=== PATIENT | female | born 1940 | race Caucasian/White ===

== ENCOUNTER 2023-09-21 12:34 | Emergency (ER) | payer MEDICARE, SELFPAY ==
[2023-09-21 12:46] VITALS: BP 155/88
--- NOTE | 2023-09-21 14:15 | ED.GENMED ---
History of Present Illness
General
Chief Complaint: Musculo-Skeletal Complaint
Source: patient, spouse and family
Time Seen by Provider: 09/21/23 13:26
Travel History
Have you had any contact with someone who has COVID-19?: No
Do you have any symptoms of coronavirus? Fever > 100 degrees, chills, cough, shortness of breath, sore throat, loss of taste or smell, muscle aches, or headache?: No
History of Present Illness
History of Present Illness:
82-year-old female presenting to the emergency department from a local urgent care for evaluation after she had an accidental trip and fall yesterday evening resulting in significant left wrist pain. At the urgent care patient had an x-ray done and
was told she had 2 broken bones in her forearm and that she should come to the emergency department for urgent orthopedics consultation and likely surgery. Patient was placed in a splint prior to being discharged from the urgent care and presented
to the ER. Patient denies any head injury, loss consciousness, vomiting, visual changes or any other injuries sustained. She still notes she is having pain to the affected left wrist/forearm but is denying any weakness, numbness or paresthesia to
the extremity.
Past History
Past History
ED Past Medical History: None
ED Past Surgical History: Cholecystectomy
Social History
Tobacco: Non-smoker
Alcohol: None
Drug: None
Personal:
Living: with family
Review of Systems
Review of Systems
All Other Systems: ROS reviewed and negative except as documented in HPI and ROS
Phy Exam
Physical Exam
Physical Exam:
GENERAL: Alert , in no apparent distress
EYE: conjunctiva clear
Head: Normocephalic atraumatic
NECK: Supple,
ENT: mmm.
LUNGS: no acute respiratory distress
NEUROLOGICAL: Alert and oriented
SKIN: Warm and dry, skin intact.
MUSCULOSKELETAL: Left wrist has a small volar wrist splint in place. Cap refill to the extremities is less than 2 seconds and patient is able to range of motion her digits without much pain or difficulty. Sensation is grossly intact to light
touch. Remainder of extremities are within normal limits and without signs of trauma.
PSYCH: Normal and appropriate interaction.
Scores
Heart Failure Risk
Heart Failure Risk Score: Not Applicable
Heart Score for Chest Pain Patients
STEMI patient?: Not applicable
Withdrawal Assessment of Alcohol
Withdrawal Assessment Completed?: Not applicable
Course
Orders/Labs/Results
Orders:
Orders
09/21/23 13:56
Oxycodone/Acetaminophen [Percocet 5/325] 1 tablet PO NOW STA
09/21/23 13:57
Ibuprofen [Motrin] 400 mg PO NOW STA
Vital Signs
Initial and Last Documented VS:
Initial Vital Signs
Temp Pulse Resp BP Pulse Ox
98.1 F 73 16 155/88 97
09/21/23 12:46 09/21/23 12:46 09/21/23 12:46 09/21/23 12:46 09/21/23 12:46
Last Documented Vital Signs
Temp Pulse Resp BP Pulse Ox
98.1 F 72 18 133/72 97
09/21/23 12:46 09/21/23 14:53 09/21/23 14:53 09/21/23 14:53 09/21/23 14:53
Procedures
Splinting/Sling Placement
Left Lower Arm:
Procedure completed by: Jayla
Pre-splint extermity exam: neurovascular intact
Type of splint: sugar-tong
Splint material: other (3 inch Ortho-Glass)
Splint checked by provider?: Yes
Type of sling: sling fitted
Normal distal neurovascular exam?: Yes
MDM/Problems Addressed
MDM/Problems Addressed:
82-year-old female presenting the emergency department at the request of local urgent care to be evaluated of a significant left wrist fracture. I reviewed the x-rays that were done at their facility which show an impacted distal radius and ulnar
fracture. There is slight dorsal angulation of the ulnar fragment. Overall the bones are well in line but impacted. Patient is likely going to need surgery but not emergently as she is neurovascularly intact and there are no open wounds.
Patient's splint that is in place is not sufficient for her injury so I will replace this with a sugar-tong splint. Pain control with Motrin and Percocet. Patient was provided with information for outpatient orthopedics follow-up. I discussed all
of this with patient and her family and they are happy in agreement with this treatment plan. She is otherwise stable for discharge home.
*Pulse Oximetry
Patient hypoxic: no
*Critical Care Note
Total Time (30-74mins, 75-104mins- exclusive of procedures): Not Applicable
Data Reviewed
Review of Other/Old Records Reveals: Radiology Studies
Source: patient, records and family
ED Attending Note
-
Portions of this chart may have been created with voice recognition software.� Occasional wrong word or��sound alike� substitutions may have occurred due to the inherent limitations of voice recognition software.
Discharge Plan
Departure
Patient Disposition: Home (Routine Discharge)
Date of Disposition: 09/21/23
Time of Disposition: 14:15
Patient with high blood pressure during this ER visit?: Yes
Discharge Problem:
Fracture of left radius and ulna
Instructions: Wrist Fracture (DC)
Prescriptions:
New
oxycodone-acetaminophen [Percocet] 5-325 mg tablet
1 tab PO Q6HPRN PRN (Reason: pain) Qty: 5 0RF
No Action
melatonin 5 MG tablet
10 mg PO HS
acetaminophen [Tylenol Arthritis Pain] 650 MG tablet extended release
1,300 mg PO BID
ascorbic acid (vitamin C) [Vitamin C] 500 MG tablet
500 mg PO DAILY
B-complex with vitamin C 1 CAPLET tablet
1 cap PO DAILY
cholecalciferol (vitamin D3) 1,000 UNITS tablet
1,000 units PO DAILY
multivitamin with folic acid [Tab-A-Han] 1 TABLET tablet
1 tab PO DAILY
Tuna Oil
1 cap PO DAILY
docusate sodium 100 MG capsule
100 mg PO BID
amlodipine 5 MG tablet
5 mg PO DAILY Qty: 30 0RF
Referrals:
Quinton Lopez MD [Family Provider] -
Mike Hall MD [Active] - (Hand/Wrist Surgeon)
Interventions
Interventions:
*Risk Screen - Suicide Last Done: 09/21/23 13:30
*General Assessment Last Done: 09/21/23 13:30
*Neglect/Abuse Screening Last Done: 09/21/23 13:30
ED- Fall Risk Assessment Last Done: 09/21/23 13:30
*ED COVID-19 Vaccine History Last Done: 09/21/23 12:46
ED-Musculoskeletal Assessment Last Done: 09/21/23 13:30
Discharge Date and Time
Print Language: MACEDONIAN
[2023-09-21] MEDS: MOTRIN 400 MG PO (14:27)
[2023-09-21] MEDS: PERCOCET 5/325 1 TABLET PO (14:27)
[2023-09-21 14:53] VITALS: BP 133/72
== END 2023-09-21 15:26 | disposition home or self-care (01) ==
LOC: EMR 12:34
PROVIDERS: EMERGENCY PHYSICIAN Emergency Medicine; FAMILY PHYSICIAN Internal Medicine Geriatric Medicine
DX: S52.202A Unspecified fracture of shaft of left ulna, initial encounter for closed fracture (principal); S52.592D Other fractures of lower end of left radius, subsequent encounter for closed fracture with routine healing; W01.0XXA Fall on same level from slipping, tripping and stumbling without subsequent striking against object, initial encounter; R03.0 Elevated blood-pressure reading, without diagnosis of hypertension; Z79.82 Long term (current) use of aspirin; Z90.49 Acquired absence of other specified parts of digestive tract
CPT/HCPCS: 99283; 29125

== ENCOUNTER → 2023-09-24 06:41 | Day surgery (SDC) | payer MEDICARE, SELFPAY ==
[2023-09-24 16:10] VITALS: BP 165/99
[2023-09-24 16:35] VITALS: BMI 22.7
[2023-09-24 16:36] VITALS: BMI 22.7
[2023-09-24 16:36] LABS: Hemoglobin 12.4 g/dL (12.0-16.0); Mean Corp Hgb Conc. 35.4 g/dL (33.0-37.0); Mean Corpuscular Hgb 29.5 pg (27.0-31.0); Mean Corpuscular Volume 83.3 fL (81.0-99.0); Mean Platelet Volume 9.5 fL (7.4-10.4); Platelet Count 211 10^3/uL (130-400); Red Cell Dist. Width 13.7 % (11.5-14.5); White Blood Cell Count 10.5 10^3/uL (4.8-10.8)
[2023-09-24] MEDS: CELEBREX 200 MG PO (16:37)
[2023-09-24] MEDS: TYLENOL 1000 MG PO (16:37)
[2023-09-24] MEDS: NORMOSOL-R 1000 IV (16:38)
[2023-09-24 19:00] VITALS: BP 166/99
[2023-09-24 19:30] VITALS: BP 179/94
[2023-09-24 19:45] VITALS: BP 166/99; BP 176/89
[2023-09-24 20:00] VITALS: BP 181/95
== END ==
LOC: SDS 06:41
PROVIDERS: ATTENDING PHYSICIAN Orthopaedic Surgery Hand Surgery
DX: S52.502A Unspecified fracture of the lower end of left radius, initial encounter for closed fracture (principal); S52.602A Unspecified fracture of lower end of left ulna, initial encounter for closed fracture; X58.XXXA Exposure to other specified factors, initial encounter
CPT/HCPCS: 25608; 25652; 85027; 93005; C1713

== ENCOUNTER → 2024-01-28 09:50 | Outpatient (REF) | payer MEDICARE, SELFPAY | LOC: HWRAD 09:50 | PROVIDERS: ATTENDING PHYSICIAN Internal Medicine Geriatric Medicine | DX: Z78.0 Asymptomatic menopausal state (principal) | CPT/HCPCS: 77080 ==

== ENCOUNTER 2024-03-20 13:30 | Emergency (ER) | payer MEDICARE, SELFPAY ==
[2024-03-20 13:40] VITALS: BP 135/70; BMI 25.0
--- NOTE | 2024-03-20 13:55 | ED.GENMED ---
History of Present Illness
<Klaus Mendoza PA-C - Last Filed: 03/21/24 08:18>
General
Chief Complaint: Fall
Time Seen by Provider: 03/20/24 13:35
History of Present Illness
History of Present Illness:
83-year-old female with history of parkinsonism presents to the emergency department for evaluation of left hip and thigh pain after a fall. States that she was walking with her walker and attempting to reach for something when she lost her balance
and fell onto the left side. Denies head strike. At this time denies back pain or abdominal pain. Does not take blood thinners
Past History
<Klaus Mendoza PA-C - Last Filed: 03/21/24 08:18>
Past History
ED Past Medical History: None
ED Past Surgical History: Cholecystectomy
Social History
Tobacco: Non-smoker
Alcohol: None
Drug: None
Personal:
Living: with family
Review of Systems
<SHELLY Jeffrey Last Filed: 03/21/24 08:18>
Review of Systems
Allergies reviewed?: Yes
All Other Systems: ROS reviewed and negative except as documented in HPI and ROS
Phy Exam
<SHELLY Jeffrey Last Filed: 03/21/24 08:18>
Physical Exam
Physical Exam:
GEN: Well appearing, NAD, WDWN
HEENT: Oral mucosa moist, no scleral icterus
Cardiac: Regular rate
Lung: No respiratory distress, no tachypnea
Abdomen: Soft, nontender
MSK: No gross deformity or injuries, no shortening or external rotation of the left lower extremity. Focal tenderness to the greater trochanter of the left hip with no palpable crepitus
Skin: Good color, no pallor or jaundice, no rashes
Neuro: AO x3, moves all extremities freely
Psych: Calm, cooperative
Course
<Klaus Mendoza PA-C - Last Filed: 03/21/24 08:18>
Orders/Labs/Results
Orders:
Orders
03/20/24 13:46
CR Hip - LT w/wo Pel 2-3 Vw* Urgent
Comment:
Reason For Exam: fall L hip pain
Include a pelvis x-ray?: Yes
03/20/24 16:10
CT Pelvis W/o Iv Contrast Urgent
Comment:
Reason For Exam: L hip pain after fall
03/20/24 17:19
Acetaminophen [Tylenol] 650 mg PO NOW STA
Vital Signs
Initial and Last Documented VS:
Initial Vital Signs
Temp Pulse Resp BP Pulse Ox
97.4 F 81 18 135/70 96
03/20/24 13:40 03/20/24 13:40 03/20/24 13:40 03/20/24 13:40 03/20/24 13:40
Last Documented Vital Signs
Temp Pulse Resp BP Pulse Ox
97.8 F 78 16 133/85 99
03/20/24 19:45 03/20/24 19:45 03/20/24 19:45 03/20/24 19:45 03/20/24 19:45
<Vu Machuca PA-C - Last Filed: 03/20/24 19:48>
Orders/Labs/Results
Orders:
Orders
03/20/24 13:46
CR Hip - LT w/wo Pel 2-3 Vw* Urgent
Comment:
Reason For Exam: fall L hip pain
Include a pelvis x-ray?: Yes
03/20/24 16:10
CT Pelvis W/o Iv Contrast Urgent
Comment:
Reason For Exam: L hip pain after fall
03/20/24 17:19
Acetaminophen [Tylenol] 650 mg PO NOW STA
Vital Signs
Initial and Last Documented VS:
Initial Vital Signs
Temp Pulse Resp BP Pulse Ox
97.4 F 81 18 135/70 96
03/20/24 13:40 03/20/24 13:40 03/20/24 13:40 03/20/24 13:40 03/20/24 13:40
Last Documented Vital Signs
Temp Pulse Resp BP Pulse Ox
97.8 F 78 16 133/85 99
03/20/24 19:45 03/20/24 19:45 03/20/24 19:45 03/20/24 19:45 03/20/24 19:45
<Vu Machuca PA-C - Last Filed: 03/20/24 19:48>
*Critical Care Note
Total Time (30-74mins, 75-104mins- exclusive of procedures): Not Applicable
<Vu Machuca PA-C - Last Filed: 03/20/24 19:48>
Update Note
Update Note:
Assumed care of patient pending CT of pelvis. She fell and had left hip pain x-rays were negative. Pelvis CT confirms nondisplaced superior pubic rami fracture at the junction of the acetabulum. Discussed the findings with patient and who
is in the room. There live a [facility]. I recommended she stay in the hospital for work with physical therapy and further evaluation however both patient's and patient declined. They wish to go back. Without being said, nursing staff
did evaluate the patient. She is ambulatory with a walker in the room. She will continue with Tylenol or ibuprofen for pain. Return precautions were given recommended orthopedic follow-up
ED Attending Note
<Klaus Mendoza PA-C - Last Filed: 03/21/24 08:18>
-
Portions of this chart may have been created with voice recognition software.� Occasional wrong word or��sound alike� substitutions may have occurred due to the inherent limitations of voice recognition software.
Discharge Plan
Departure
Patient Disposition: Home (Routine Discharge)
Date of Disposition: 03/20/24
Time of Disposition: 19:47
Patient with high blood pressure during this ER visit?: No
Discharge Problem:
Fracture of pubic ramus
Prescriptions:
No Action
ascorbic acid (vitamin C) [Vitamin C] 500 MG tablet
500 mg PO DAILY
B-complex with vitamin C 1 CAPLET tablet
1 cap PO DAILY
cholecalciferol (vitamin D3) 1,000 UNITS tablet
1,000 units PO DAILY
multivitamin with folic acid [Tab-A-Han] 1 TABLET tablet
1 tab PO DAILY
docusate sodium 100 MG capsule
100 mg PO PRN PRN (Reason: constipation)
oxycodone-acetaminophen [Percocet] 5-325 mg tablet
1 tab PO Q6HPRN PRN (Reason: pain) Qty: 5 0RF
ibuprofen 200 mg Capsule
200 mg PO Q6H PRN (Reason: pain)
citalopram 20 mg Tablet
20 mg PO DAILY
zolpidem 5 mg Tablet
5 mg PO HS
aspirin 81 mg Tablet,Delayed Release (Dr/Ec)
81 mg PO DAILY
Referrals:
Quinton Lopez MD [Family Provider] -
Michael Aleman MD [Active] -
Activity Restrictions/Additional Instructions:
You may put your foot down slightly only to take some weight off of your left foot otherwise limit weightbearing on left foot with walker. Please follow-up with orthopedics.
Interventions
Interventions:
*Risk Screen - Suicide Last Done: 03/20/24 18:50
*General Assessment Last Done: 03/20/24 18:50
*Neglect/Abuse Screening Last Done: 03/20/24 18:50
ED- Fall Risk Assessment Last Done: 03/20/24 18:50
*Nursing Disposition Last Done: 03/20/24 19:52
ED-Musculoskeletal Assessment Last Done: 03/20/24 18:50
ED- Neurological Assessment Last Done: 03/20/24 18:50
ED-Skin Assessment Last Done: 03/20/24 18:50
Discharge Date and Time
Discharge Date/Time: 03/20/24 19:56
Print Language: CYMRAES
[2024-03-20 17:00] VITALS: BP 145/80
[2024-03-20] MEDS: TYLENOL 650 MG PO (18:54)
[2024-03-20 19:45] VITALS: BP 133/85
== END 2024-03-20 19:56 ==
LOC: EMR 13:30
PROVIDERS: EMERGENCY PHYSICIAN Student in an Organized Health Care Education/Training Program; FAMILY PHYSICIAN Internal Medicine Geriatric Medicine
DX: S32.512A Fracture of superior rim of left pubis, initial encounter for closed fracture (principal); W18.39XA Other fall on same level, initial encounter; G20.C Parkinsonism, unspecified; Z90.49 Acquired absence of other specified parts of digestive tract
CPT/HCPCS: 99284; 72192; 73502

== ENCOUNTER → 2024-10-13 10:03 | Outpatient (REF) | payer MEDICARE, SELFPAY ==
[2024-10-13 12:58] LABS: Hematocrit 39.3 % (37.0-47.0); Hemoglobin 13.2 g/dL (12.0-16.0); Mean Corp Hgb Conc. 33.6 g/dL (33.0-37.0); Mean Corpuscular Volume 87.3 fL (81.0-99.0); Nucleated Red Blood Cells % 0 %; Platelet Count 234 10^3/uL (130-400); Red Cell Dist. Width 13.7 % (11.5-14.5)
[2024-10-13 13:41] LABS: ALT (SGPT) < 10 U/L (0-35); AST (SGOT) 21 U/L (14-36); Albumin 4.4 g/dl (3.5-5.0); Alkaline Phosphatase 61 U/L (38-126); Blood Urea Nitrogen 9 mg/dl (7-17); Calcium 9.6 mg/dl (8.4-10.2); Carbon Dioxide 26 mmol/L (22-30); Chloride 96 mmol/L (98-107); Glucose 94 mg/dl (70-99); HDL Cholesterol 78 mg/dl; LDL Cholesterol, Calculated 76 mg/dl; Potassium 5.0 mmol/L (3.5-5.1); Sodium 126 mmol/L (135-145); Total Protein 7.3 g/dl (6.3-8.2); Very Low Density Lipoprotein 17 mg/dl (0-30); eGFR > 60.00
[2024-10-13 13:56] LABS: Vitamin D, 25-OH*** 29.1 ng/mL (30-80)
[2024-10-13 13:59] LABS: Urine Character Slightly Cloudy (Clear)
[2024-10-13 14:09] LABS: TSH 2.53 uIU/ml (0.47-4.68)
== END ==
LOC: HWLAB 10:03
PROVIDERS: ATTENDING PHYSICIAN Internal Medicine Geriatric Medicine; REFERRING PHYSICIAN Specialist
DX: Z79.899 Other long term (current) drug therapy (principal); R82.90 Unspecified abnormal findings in urine; R79.89 Other specified abnormal findings of blood chemistry; I10 Essential (primary) hypertension; E87.1 Hypo-osmolality and hyponatremia; Z13.29 Encounter for screening for other suspected endocrine disorder; Z13.220 Encounter for screening for lipoid disorders
CPT/HCPCS: 36415; 80053; 80061; 81003; 81015; 82306; 84439; 84443; 85025

== ENCOUNTER → 2024-11-29 11:21 | Outpatient (REF) | payer MEDICARE, SELFPAY ==
[2024-11-29 16:33] LABS: Blood Urea Nitrogen 14 mg/dl (7-17); Calcium 9.6 mg/dl (8.4-10.2); Carbon Dioxide 28 mmol/L (22-30); Chloride 96 mmol/L (98-107); Glucose 87 mg/dl (70-99); Potassium 5.0 mmol/L (3.5-5.1); Sodium 129 mmol/L (135-145); eGFR > 60.00
== END ==
LOC: HWLAB 11:21
PROVIDERS: ATTENDING PHYSICIAN Internal Medicine Geriatric Medicine
DX: R26.89 Other abnormalities of gait and mobility (principal); R26.9 Unspecified abnormalities of gait and mobility; E87.1 Hypo-osmolality and hyponatremia; G25.0 Essential tremor; M81.0 Age-related osteoporosis without current pathological fracture; E55.9 Vitamin D deficiency, unspecified; Z13.89 Encounter for screening for other disorder
CPT/HCPCS: 36415; 80048; 83930; 84300

== ENCOUNTER → 2024-12-23 13:35 | Outpatient (REF) | payer MEDICARE, SELFPAY ==
[2024-12-23 19:17] LABS: Urine Character Slightly Cloudy (Clear)
[2024-12-23 19:48] LABS: Urine Squamous Cell 16-20 /LPF (Few)
[2024-12-23 19:49] LABS: Urine Red Blood Cell 0-2 /HPF (0-2)
== END ==
LOC: CLAB 13:35
PROVIDERS: ATTENDING PHYSICIAN Nurse Practitioner Adult Health
DX: R39.9 Unspecified symptoms and signs involving the genitourinary system (principal)
CPT/HCPCS: 81003; 81015; 87077; 87086; 87186

== ENCOUNTER 2025-02-03 01:37 | Emergency (ER) | payer MEDICARE, SELFPAY ==
[2025-02-03 01:45] VITALS: BP 146/80
[2025-02-03 01:53] VITALS: BMI 25.8
[2025-02-03 02:00] VITALS: BP 137/75
[2025-02-03 02:01] LABS: Hematocrit 37.4 % (37.0-47.0); Hemoglobin 12.5 g/dL (12.0-16.0); Mean Corp Hgb Conc. 33.4 g/dL (33.0-37.0); Mean Corpuscular Volume 87.4 fL (81.0-99.0); Nucleated Red Blood Cells % 0 %; Platelet Count 216 10^3/uL (130-400); Red Cell Dist. Width 13.7 % (11.5-14.5)
[2025-02-03 02:25] LABS: ALT (SGPT) 17 U/L (0-35); AST (SGOT) 30 U/L (14-36); Albumin 4.1 g/dl (3.5-5.0); Alkaline Phosphatase 66 U/L (38-126); Blood Urea Nitrogen 12 mg/dl (7-17); Calcium 9.0 mg/dl (8.4-10.2); Carbon Dioxide 23 mmol/L (22-30); Chloride 93 mmol/L (98-107); Estimated Creatinine Clearance 48 ml/min; Glucose 126 mg/dl (70-99); Potassium 4.3 mmol/L (3.5-5.1); Sodium 124 mmol/L (135-145); Total Protein 7.1 g/dl (6.3-8.2); eGFR > 60.00
[2025-02-03 03:00] VITALS: BP 134/65
[2025-02-03 04:00] VITALS: BP 136/83
[2025-02-03 04:52] LABS: Uric Acid 3.1 mg/dl (2.5-6.2)
[2025-02-03 04:53] LABS: C-Reactive Protein 25.60 mg/L (0.0-10.00)
[2025-02-03 05:00] VITALS: BP 133/73
--- NOTE | 2025-02-03 05:48 | ED.GENMED ---
History of Present Illness
General
Chief Complaint: Weakness
Source: patient
Exam Limitations: none
Time Seen by Provider: 02/03/25 03:47
Nursing documentation reviewed up to this point in time: agreed with
History of Present Illness
History of Present Illness:
The patient is an 84-year-old female who presented to the emergency department with complaints of bilateral knee pain and weakness. She was brought in by ambulance last night. The patient reports that her knees have been hurting since yesterday but
denies any falls. She uses a walker for ambulation and states that her knee pain worsens upon standing and walking. Despite nurses notes indicating her knees have been locking, the patient denies this symptom. During physical examination, slight
tenderness was noted on the left knee, particularly along the medial aspect. The patient has no history of gout or pseudogout and denies any recent fevers. She reports normal appetite and bowel movements.
Past medical history notable for TIA 2020, IBS, impaired fasting glucose, benign essential tremor�she states Parkinson's was ruled out. She has history of ambulatory dysfunction/balance issues, chronically uses a walker to ambulate. She denies
fever nor chills. She has not been taking anything for pain. She resides at home with her .
Past History
Past History
ED Past Medical History: CVA (TIA 2020), HTN, Other (Impaired fasting glucose, IBS) and Other (Familial tremor-patient states Parkinson's was ruled out)
ED Past Surgical History: Cholecystectomy and Urological (Rectocele repair)
Social History
Tobacco: Non-smoker
Alcohol: None
Drug: None
Personal:
Living: with family
Family History
Family History: Other (Noncontributory)
Phy Exam
Physical Exam
Physical Exam:
GENERAL: 84-year-old woman appears her stated age. Initially asleep upon entering exam room, awakens easily. Once awake, she initially could not recall why she was brought to the ED.
EYE: pupils equal and reactive. anicteric
NECK: Supple, nontender, no meningismus, no significant adenopathy.
ENT: posterior pharynx is clear, oral mucosa is moist. TM clear b/l, nares patent.
CARDIAC: Regular rate and rhythm. no murmur.
LUNGS: Clear breath sounds bilaterally, no acute respiratory distress, no wheezes/rales/rhonchi
ABDOMEN: Soft, nondistended, without focal tenderness, normoactive BS.
NEUROLOGICAL: Alert and oriented x3, no focal neuro deficits.
SKIN: Warm and dry, normal color, skin intact. No rash.
MUSCULOSKELETAL: No C/C/E. peripheral pulses are full and equal b/l. There is no tenderness about the right knee. Full range of motion of right knee without difficulty nor pain. The left knee is moderately tender primarily to the anterior aspect
with mild palpable effusion and very minimal erythema anteromedial aspect of the left knee. Mild pain with range of motion of the left knee.
PSYCH: Normal and appropriate interaction.
Course
Orders/Labs/Results
Orders:
Orders
02/03/25 01:50
Electrocardiogram (*1) Urgent
Reason for Study: Fatigue / Weakness
EKG- Treatment ONCE
02/03/25 01:52
C-Reactive Protein Urgent
Comment: ADDED
Complete Blood Count/With Diff Urgent
Comprehensive Metabolic Panel Urgent
Erythrocyte Sed Rate Urgent
Comment: ADDED
Serum Osmolality Urgent
Comment: ADDED
Uric Acid Urgent
Comment: ADDED
02/03/25 04:15
Add On- LAB Urgent
Tests Added?: sed rate, CRP, uric acid
02/03/25 04:16
Knee, Left 4 or More Views [CR Knee - Left 4 Or More View*] Urgent
Comment:
Reason For Exam: acute L knee pain, swelling
02/03/25 04:17
Add On- LAB Urgent
Tests Added?: serum osmolarity
02/03/25 04:18
Urine Sodium Urgent
02/03/25 05:26
Acetaminophen 1000MG/100Ml [Ofirmev] 1,000 mg in 100 ml IV ONCE
Acetaminophen IV Indication:: ED Narcotic Naive Pt-ONCE
02/03/25 05:45
Lactic Acid Urgent
02/03/25 05:51
Lyme Progressive Urgent
02/03/25 06:11
Body Fluid Cell Count Urgent
What is the Body Fluid: joint
Date Specimen was Collected: 02/03/25
Time Specimen was Collected: 06:09
Comment: with DIFF
Body Fluid Crystals Urgent
What is the Body Fluid: joint
Date Specimen was Collected: 02/03/25
Time Specimen was Collected: 06:09
02/03/25 06:12
Fluid Culture with Gram Stain Urgent
YEE Source: Joint Fluid
Specimen Description:
Date Specimen was Collected: 02/03/25
Time Specimen was Collected: 06:09
Gram Stain Stat
YEE Source: Joint
Specimen Description:
Date Specimen was Collected: 02/03/25
Time Specimen was Collected: 06:09
02/03/25 07:00
Osmolality, Random Urine Urgent
Date Specimen was Collected: 02/03/25
Time Specimen was Collected: 06:09
Abnormal Lab Results
02/03/25
01:52
WBC 11.1 H 10^3/uL
(4.8-10.8)
Abs Immat Gran (auto) 0.1 H 10^3/uL
(0-0.05)
Absolute Neuts (auto) 8.1 H 10^3/uL
(1.4-6.5)
Absolute Monos (auto) 1.1 H 10^3/uL
(0.1-0.6)
Lymphocytes % 13.6 L %
(20.5-51.1)
Monocytes % 10.2 H %
(1.7-9.3)
Sodium 124 L mmol/L
(135-145)
Chloride 93 L mmol/L
(98-107)
Glucose 126 H mg/dl
(70-99)
Serum Osmolality 267 L mOsm/kg
(275-300)
C-Reactive Protein 25.60 H mg/L
(0.0-10.00)
02/03/25 01:52
02/03/25 01:52
Vital Signs
Initial and Last Documented VS:
Initial Vital Signs
Temp Pulse Resp BP
99.3 F 88 15 146/80
02/03/25 01:45 02/03/25 01:45 02/03/25 01:45 02/03/25 01:45
Last Documented Vital Signs
Temp Pulse Resp BP Pulse Ox
98.4 F 80 25 122/60 95
02/03/25 05:02 02/03/25 06:45 02/03/25 06:45 02/03/25 06:00 02/03/25 06:45
Procedures
Incision/Drainage/Joint Aspiration
Left Knee:
Anethesia: 1% Lidocaine with Epi and Added Na bicarb to local
Preparation: cleaned with Betadine
Type of procedure: aspiration
Nature of site: other (Left knee joint effusion)
How much fluid was obtained?: number in mls (40 mL)
Fluid description: cloudy (Yellow/straw-colored fluid, slightly cloudy) and straw colored
Treatment: bandaid applied
Additional information:
Patient tolerated procedure well. No complications.
Joint fluid sent to the lab for analysis.
MDM/Problems Addressed
Differential Diagnosis Includes:
The Differential Diagnosis includes, in no particular order and is not limited to:
1. Osteoarthritis
2. Bursitis
3. Meniscal tear
4. Rheumatoid arthritis
5. Septic arthritis
6. Tendinitis
7. Gout or pseudogout
8. Ligamentous strain or tear
9. Patellofemoral pain syndrome
10. Aging and musculoskeletal degeneration
MDM/Problems Addressed:
Acute left knee pain since yesterday. Atraumatic.
Questionable borderline low-grade fever noted at 99.3 �F. Patient denies fever.
Will check labs, inflammatory markers.
Will check x-ray left knee.
Will check bedside ultrasound of left knee assess for effusion and if present will plan for arthrocentesis and joint fluid analysis.
Thus far labs reveal a very mildly elevated white blood cell count of 11.1
Inflammatory markers are pending.
Moderate hyponatremia with sodium of 124. Upon review of records, similar hyponatremia noted in October as well as November�outpatient laboratory studies.
Will check serum osmolality, urine sodium and urine osmolality.
Patient reports no recent change in medication.
Chronic conditions affecting care: Neurological disorder (TIA 2020, ambulatory dysfunction, chronically utilizes a walker.)
*Radiology
Radiology exam reviewed: preliminary read by ED provider (Left knee x-ray shows mild DJD. No evidence of fracture.)
*Pulse Oximetry
SaO2: 94
Patient hypoxic: no
*EKG
Interpreted by ED Provider?: Yes
Comparison EKG: changes noted (Rightward axis is new compared to previous EKG September 2023. I suspect limb lead reversal. Otherwise unchanged.)
Rate: normal
Rhythm: sinus
[place]: right axis deviation
Interval: normal interval
QRS Pattern: normal QRS
Ischemia: no ischemia
*Referral Management Liaison Interpretation
Rate: normal
Interpretation: normal
Rhythm: sinus
*Critical Care Note
Total Time (30-74mins, 75-104mins- exclusive of procedures): Not Applicable
Update Note
Update Note:
07:15
Inflammatory markers are unremarkable
Joint fluid unremarkable. No evidence of infection. Crystals are negative.
I suspect acute osteoarthritic flare.
Will place on a short course of low-dose Mobic.
Ivan wrap.
Will refer to orthopedics for follow-up as well as PCP.
ED Attending Note
-
Portions of this chart may have been created with voice recognition software.� Occasional wrong word or��sound alike� substitutions may have occurred due to the inherent limitations of voice recognition software.
Discharge Plan
Departure
Patient Disposition: Home (Routine Discharge)
Date of Disposition: 02/03/25
Time of Disposition: 07:15
Patient with high blood pressure during this ER visit?: No
Condition: Good
Discharge Problem:
acute osteoarthritis flair L knee, Chronic hyponatremia
Instructions: Hyponatremia, Knee pain - ED (DC)
Prescriptions:
New
meloxicam 7.5 mg tablet
7.5 mg PO DAILY Qty: 10 0RF
No Action
ascorbic acid (vitamin C) [Vitamin C] 500 MG tablet
500 mg PO DAILY
B-complex with vitamin C 1 CAPLET tablet
1 cap PO DAILY
cholecalciferol (vitamin D3) 1,000 UNITS tablet
1,000 units PO DAILY
multivitamin with folic acid [Tab-A-Han] 1 TABLET tablet
1 tab PO DAILY
docusate sodium 100 MG capsule
100 mg PO PRN PRN (Reason: constipation)
oxycodone-acetaminophen [Percocet] 5-325 mg tablet
1 tab PO Q6HPRN PRN (Reason: pain) Qty: 5 0RF
ibuprofen 200 mg Capsule
200 mg PO Q6H PRN (Reason: pain)
citalopram 20 mg Tablet
20 mg PO DAILY
zolpidem 5 mg Tablet
5 mg PO HS
aspirin 81 mg Tablet,Delayed Release (Dr/Ec)
81 mg PO DAILY
oxycodone-acetaminophen [Percocet] 5-325 mg tablet
1 tab PO Q6HPRN PRN (Reason: pain) Qty: 8 0RF
Referrals:
Jessee Fernández CRNP [Family Provider, Internal Medicine] - Call in 1-3 days for appt
Rodrick Wright MD [Active, Orthopedics] - Call in 1-3 days for appt
Interventions
Interventions:
*Risk Screen - Suicide Last Done: 02/03/25 01:53
*General Assessment Last Done: 02/03/25 01:53
*Neglect/Abuse Screening Last Done: 02/03/25 01:53
*ED- Fall Risk Assessment Last Done: 02/03/25 01:53
*ED COVID-19 Vaccine History Last Done: 02/03/25 01:53
*ED Influenza Vaccine History Last Done: 02/03/25 01:53
ED- Cardiac Assessment Last Done: 02/03/25 02:05
ED- Neurological Assessment Last Done: 02/03/25 02:05
ED- Pulmonary Assessment Last Done: 02/03/25 02:05
Discharge Date and Time
Print Language: [place]
[2025-02-03 06:00] VITALS: BP 122/60
[2025-02-03] MEDS: OFIRMEV 100 IV (06:13)
[2025-02-03 07:08] LABS: Body Fluid Second Tech CMB
[2025-02-03 12:37] LABS: Lyme Antibody Screen, EIA Negative (Negative)
== END 2025-02-03 07:54 | disposition home or self-care (01) ==
LOC: EMR 01:37
PROVIDERS: EMERGENCY PHYSICIAN Emergency Medicine; FAMILY PHYSICIAN Nurse Practitioner Adult Health
DX: M17.0 Bilateral primary osteoarthritis of knee (principal); E87.1 Hypo-osmolality and hyponatremia; I10 Essential (primary) hypertension; Z86.73 Personal history of transient ischemic attack (TIA), and cerebral infarction without residual deficits; Z90.49 Acquired absence of other specified parts of digestive tract
CPT/HCPCS: 20610; 99285; 96374; 73564; 80053; 83605; 83930; 84550; 85025; 85652; 86140; 86618; 87015; 87070; 87205; 89051; 89060; 93005

== ENCOUNTER → 2025-03-07 10:43 | Outpatient (REF) | payer MEDICARE, SELFPAY ==
[2025-03-07 13:01] LABS: Blood Urea Nitrogen 14 mg/dl (7-17); Calcium 9.5 mg/dl (8.4-10.2); Carbon Dioxide 28 mmol/L (22-30); Chloride 100 mmol/L (98-107); Glucose 89 mg/dl (70-99); Potassium 4.3 mmol/L (3.5-5.1); Sodium 133 mmol/L (135-145); eGFR > 60.00
== END ==
LOC: REG 10:43
PROVIDERS: ATTENDING PHYSICIAN Internal Medicine Geriatric Medicine
DX: R53.83 Other fatigue (principal); E87.1 Hypo-osmolality and hyponatremia
CPT/HCPCS: 36415; 80048